=== PATIENT | female | born 1945 | race Caucasian/White ===

== ENCOUNTER 2024-02-10 19:57 | Inpatient (IN) | payer MEDICARE, OTHER ==
[2024-02-10] MEDS ORDERED: niCARdipine 25 MG/10 ML SDV ONE ×2 (20:04→23:07)
[2024-02-10] MEDS ORDERED: fentaNYL 50 mcg/mL 1 mL Vial ONE (20:15)
[2024-02-10 20:20] LABS: #Basophils 0.11 10x3/uL (0.0-0.2); %Basophils 1.3 % (0.0-1.0); %Eosinophils 2.2 % (0.0-10.0); %Lymphocytes 22.3 % (21.0-51.0); %Monocytes 7.1 % (0.0-10.0); %Neutrophils 66.6 % (42.0-75.0); Hematocrit 40.4 % (36.0-47.0); Hemoglobin 13.9 g/dL (12.0-16.0); Mean Corpuscular HGB CONC 34.4 g/dL (32.0-36.0); Mean Corpuscular Hemoglobin 31.4 pg (27.0-31.0); Mean Corpuscular Volume 91.4 fL (78.0-98.0); Mean Platelet Volume 10.4 fL (7.4-10.4); Platelet Count 161 10x3/uL (130-400); RBC Distribution Width 12.8 % (11.5-14.5); Red Blood Cell (RBC) Count 4.42 mill/uL (4.20-5.40)
[2024-02-10] MEDS ORDERED: Fentanyl CADD 100 ML IV SCH (20:30)
[2024-02-10] MEDS ORDERED: Lorazepam 2 MG/ML VIAL ONE (20:33)
[2024-02-10 20:35] LABS: Analyzer IN Cardio ER; Base Excess (BEa) 0.1 mEq/L (-2.0 to +3.0); CO2 Tension 25.3 mmHg (35.0-45.0); Calcium, Ionized (arterial) 1.08 mmol/L (1.12-1.30); Carboxyhemoglobin (COHb) 0.4 gm% (0.0-3.0); Hematocrit-ABG 43 % (36.0-47.0); Hemoglobin (Hb) 14.5 g/dL (12.0-16.0); O2 Tension (PaO2), arterial 74.3 mmHg (> 70.0); Potassium - ABG Lab 4.77 mmol/L (3.70-5.30); pH, Arterial 7.537 (7.35-7.45)
[2024-02-10 20:36] LABS: ALV-art Gradient 179.275 mmHg (0-20); Puncture Site Right Brachial art
[2024-02-10 20:38] LABS: ALT (SGPT) 11 U/L (8-55); AST (SGOT) 23 U/L (5-34); Albumin 3.8 g/dL (3.4-4.8); Alkaline Phosphatase 92 U/L (40-110); Anion Gap 14 mmol/L (10-20); BUN (Urea Nitrogen) 20 mg/dL (9.8-20.1); Bilirubin, Total 0.4 mg/dL (0.2-1.2); Calc. Creatinine Clearance 0 mL/min (70-130); Calcium 8.7 mg/dL (7.8-10.44); Carbon Dioxide 21 mmol/L (23-31); Chloride 108 mmol/L (98-107); Estimated GFR 72; Globulin 2.7 g/dL (2.4-3.5); Glucose 137 mg/dL (83-110); Potassium 3.9 mmol/L (3.5-5.1); Protein, Total 6.5 g/dL (5.8-8.1); Sodium 139 mmol/L (136-145)
[2024-02-10 20:47] LABS: Troponin I 0.043 ng/mL (< 0.028)
[2024-02-10] MEDS ORDERED: levETIRAcetam 500 MG (5 mL) VIAL ONE (21:12)
[2024-02-10] MEDS ORDERED: Mannitol 12.5 GM/50 ML ONE (21:12)
[2024-02-10 21:21] LABS: Prothrombin Time 13.5 sec (12.0-14.7)
[2024-02-10 21:22] LABS: PTT 26.8 sec (22.9-36.1)
[2024-02-10] MEDS ORDERED: Labetalol HCl 100 MG/20 ML VIAL SLOW IVP PRN (21:57)
[2024-02-10] MEDS ORDERED: Electrolyte Replacement Protocol 1 EACH IVPB PRN (21:57)
[2024-02-10] MEDS ORDERED: Mannitol 12.5 GM/50 ML IV PRN (21:57)
[2024-02-10] MEDS ORDERED: niCARdipine 25 MG in Sodium Chloride 0.9% 250 ML 250 ML IVPB PRN (21:57)
[2024-02-10] MEDS ORDERED: Ventilator Sedation Protocol 1 EACH FS SCH (22:00)
[2024-02-10] MEDS ORDERED: Lorazepam 2 MG/ML VIAL SLOW IVP PRN ×2 (22:15→22:56)
[2024-02-10] MEDS ORDERED: Fentanyl BOLUS 250 ML IVPB PRN (22:15)
[2024-02-10] MEDS ORDERED: Propofol 1,000 MG/100 ML VIAL IV PRN (22:15)
[2024-02-10] MEDS ORDERED: DISCONTINUE PREVIOUS NARCOTIC PAIN MEDICATIONS AND BENZODIAZEPINES FS SCH (22:15)
[2024-02-10] MEDS ORDERED: Morphine 2 MG/ML VIAL SLOW IVP PRN (22:15)
[2024-02-10] MEDS ORDERED: Propofol BOLUS 1,000 MG/100 ML VIAL IV PRN (22:15)
[2024-02-10] MEDS ORDERED: Morphine 2 MG/ML VIAL ONE (22:46)
[2024-02-11] MEDS ORDERED: Propofol 1,000 MG/100 ML VIAL IV ONE (00:58)
[2024-02-11] MEDS ORDERED: niCARdipine 25 MG/10 ML SDV ONE (01:36)
[2024-02-11] MEDS ORDERED: Labetalol HCl 100 MG/20 ML VIAL ONE (01:56)
[2024-02-11] MEDS ORDERED: Dextrose 50% Abboject 50 ML SYRINGE SLOW IVP PRN (02:28)
[2024-02-11] MEDS ORDERED: Glucagon 1 MG/ML KIT IM PRN (02:28)
[2024-02-11] MEDS ORDERED: Dextrose 5% in Water 1,000 ML IV PRN (02:28)
[2024-02-11] MEDS ORDERED: hydrALAZINE 20 MG/ML VIAL ONE (02:40)
[2024-02-11] MEDS: Labetalol HCl 100 MG/20 ML VIAL SLOW IVP PRN (03:30)
[2024-02-11] MEDS: niCARdipine 25 MG in Sodium Chloride 0.9% 250 ML 250 ML IVPB PRN (03:35)
[2024-02-11] MEDS: MINERAL OIL/WHITE PETROLATUM 3.5 GM TUBE EA EYE SCH (03:36)
[2024-02-11] MEDS ORDERED: hydrALAZINE 20 MG/ML VIAL SLOW IVP PRN ×2 (04:26→04:58)
[2024-02-11 04:41] VITALS: BMI 21.9
[2024-02-11 04:45] LABS: #Basophils 0.15 10x3/uL (0.0-0.2); %Basophils 0.7 % (0.0-1.0); %Eosinophils 0.3 % (0.0-10.0); %Lymphocytes 6.9 % (21.0-51.0); %Monocytes 9.5 % (0.0-10.0); %Neutrophils 81.9 % (42.0-75.0); Hematocrit 34.1 % (36.0-47.0); Mean Corpuscular HGB CONC 35.2 g/dL (32.0-36.0); Mean Corpuscular Hemoglobin 31.9 pg (27.0-31.0); Mean Corpuscular Volume 90.7 fL (78.0-98.0); Mean Platelet Volume 10.3 fL (7.4-10.4); Platelet Count 200 10x3/uL (130-400); RBC Distribution Width 12.9 % (11.5-14.5); Red Blood Cell (RBC) Count 3.76 mill/uL (4.20-5.40)
[2024-02-11 04:54] LABS: Anion Gap 14 mmol/L (10-20); BUN (Urea Nitrogen) 16 mg/dL (9.8-20.1); Calc. Creatinine Clearance 50 mL/min (70-130); Calcium 8.3 mg/dL (7.8-10.44); Carbon Dioxide 18 mmol/L (23-31); Chloride 110 mmol/L (98-107); Estimated GFR 70; Glucose 157 mg/dL (83-110); Sodium 139 mmol/L (136-145)
[2024-02-11] MEDS: Sodium Chloride 0.9% 1,000 ML IV SCH ×2 (05:10→10:47)
[2024-02-11] MEDS: NOREPINEPHRINE 8 MG/250 ML-D5W 250 ML ONE (05:10)
[2024-02-11] MEDS: hydrALAZINE 20 MG/ML VIAL ONE ×2 (08:06→08:07)
[2024-02-11] MEDS: EPINEPHrine 1 MG/10 ML Abboject SYRINGE ONE (08:08)
[2024-02-11] MEDS: NOREPINEPHRINE 8 MG/250 ML-D5W 0 ML ONE (08:08)
[2024-02-11 08:23] VITALS: BP 139/76
[2024-02-11 10:35] LABS: Actual Bicarbonate (HCO3v) 17.5 mEq/L (22-28); Base Excess -4.7 mEq/L (-2.0 to +3.0); Chloride (VBG) 117 mmol/L (98-106); Hematocrit-VBG 36 % (36.0-47.0); Hemoglobin (Hb) 12.2 g/dL (11.7-16.1); Sodium 147 mmol/L (133-146); pH (venous) 7.463 (7.32-7.43)
[2024-02-11] MEDS: Famotidine/PF 20 mg/2ml Vial SLOW IVP SCH (10:46)
[2024-02-11] MEDS: DC Sedation Protocol FS ONE (10:46)
[2024-02-11] MEDS: Potassium Chloride 20 MEQ in Premix 1 BAG IVPB SCH (10:48)
[2024-02-11] MEDS: NOREPINEPHRINE 8 MG/250 ML-D5W 250 ML IVPB SCH (10:50)
[2024-02-11 13:05] LABS: Actual Bicarbonate (HCO3a) 18.6 mEq/L (22-28); Base Excess (BEa) -2.9 mEq/L (-2.0 to +3.0); Calcium, Ionized (arterial) 1.16 mmol/L (1.12-1.30); Carboxyhemoglobin (COHb) 0.1 gm% (0.0-3.0); Hematocrit-ABG 36 % (36.0-47.0); Hemoglobin (Hb) 12.1 g/dL (12.0-16.0); O2 Tension (PaO2), arterial 177.8 mmHg (> 70.0); Potassium - ABG Lab 4.33 mmol/L (3.70-5.30); pH, Arterial 7.509 (7.35-7.45)
[2024-02-11 13:07] LABS: ALV-art Gradient 41.875 mmHg (0-20); CO2 Tension 23.9 mmHg (35.0-45.0); Puncture Site Right Radial artery
[2024-02-11 13:49] LABS: Base Excess (BEa) -3.3 mEq/L (-2.0 to +3.0); CO2 Tension 46.1 mmHg (35.0-45.0); Calcium, Ionized (arterial) 1.26 mmol/L (1.12-1.30); Carboxyhemoglobin (COHb) 0.3 gm% (0.0-3.0); Hematocrit-ABG 37 % (36.0-47.0); Hemoglobin (Hb) 12.6 g/dL (12.0-16.0); O2 Tension (PaO2), arterial 173.4 mmHg (> 70.0); Potassium - ABG Lab 4.73 mmol/L (3.70-5.30); pH, Arterial 7.315 (7.35-7.45)
[2024-02-11 14:04] LABS: Actual Bicarbonate (HCO3a) 24.9 mEq/L (22-28); Base Excess (BEa) -4.5 mEq/L (-2.0 to +3.0); Calcium, Ionized (arterial) 1.28 mmol/L (1.12-1.30); Carboxyhemoglobin (COHb) 0.3 gm% (0.0-3.0); Hematocrit-ABG 37 % (36.0-47.0); Hemoglobin (Hb) 12.6 g/dL (12.0-16.0); O2 Tension (PaO2), arterial 141.4 mmHg (> 70.0); Potassium - ABG Lab 4.89 mmol/L (3.70-5.30)
[2024-02-11 14:05] LABS: CO2 Tension 68.2 mmHg (35.0-45.0); Puncture Site Left Brachial artery; pH, Arterial 7.181 (7.35-7.45)
[2024-02-11 14:08] LABS: ALV-art Gradient 18.525 mmHg (0-20); Puncture Site Right Radial artery
[2024-02-11 16:18] VITALS: TEMP 98.7
== END 2024-02-11 13:59 | disposition expired | DRG 64 ==
LOC: ERS 19:57 → CCU 21:55
PROVIDERS: ADMIT Student in an Organized Health Care Education/Training Program; ATTEND Internal Medicine
PROC: 0T9B70Z Drainage of Bladder with Drainage Device, Via Natural or Artificial Opening (ICD-10-PCS; principal; 2024-02-10)
PROC: 0D9670Z Drainage of Stomach with Drainage Device, Via Natural or Artificial Opening (ICD-10-PCS; 2024-02-10)
PROC: 0BH17EZ Insertion of Endotracheal Airway into Trachea, Via Natural or Artificial Opening (ICD-10-PCS; 2024-02-10)
PROC: 02HV33Z Insertion of Infusion Device into Superior Vena Cava, Percutaneous Approach (ICD-10-PCS; 2024-02-10)
PROC: B5181ZA Fluoroscopy of Superior Vena Cava using Low Osmolar Contrast, Guidance (ICD-10-PCS; 2024-02-10)
PROC: 6A550Z2 Pheresis of Platelets, Single (ICD-10-PCS; 2024-02-10)
PROC: 4A133R1 Monitoring of Arterial Saturation, Peripheral, Percutaneous Approach (ICD-10-PCS; 2024-02-10)
PROC: 3E033XZ Introduction of Vasopressor into Peripheral Vein, Percutaneous Approach (ICD-10-PCS; 2024-02-11)
PROC: 5A1935Z Respiratory Ventilation, Less than 24 Consecutive Hours (ICD-10-PCS; 2024-02-11)
DX: I61.5 Nontraumatic intracerebral hemorrhage, intraventricular (principal); G93.5 Compression of brain; J96.00 Acute respiratory failure, unspecified whether with hypoxia or hypercapnia; I16.1 Hypertensive emergency; E87.3 Alkalosis; G81.94 Hemiplegia, unspecified affecting left nondominant side; Z66 Do not resuscitate; I25.10 Atherosclerotic heart disease of native coronary artery without angina pectoris; E78.00 Pure hypercholesterolemia, unspecified; R13.10 Dysphagia, unspecified; T68.XXXA Hypothermia, initial encounter; Z95.818 Presence of other cardiac implants and grafts; Z90.49 Acquired absence of other specified parts of digestive tract; R00.1 Bradycardia, unspecified; Z86.73 Personal history of transient ischemic attack (TIA), and cerebral infarction without residual deficits; I25.2 Old myocardial infarction; Z78.1 Physical restraint status; Z79.02 Long term (current) use of antithrombotics/antiplatelets; Z79.82 Long term (current) use of aspirin; X58.XXXA Exposure to other specified factors, initial encounter
CPT/HCPCS: 31500; 36415; 36416; 36430; 36556; 36600; 51702; 70450; 71045; 80048; 80053; 82805; 84484; 85025; 85610; 85730; 86850; 86900; 86901; 93005; 94002; 94003; 94760; 96361; 96365; 96375; 99292; J0360; J1953; J2060; J2150; J2272; J2704; J3010; J3480; J3490; J7030; J7050; P9035

== ENCOUNTER 2024-02-11 13:59 | Day surgery (SDC) | payer OTHER ==
[~2024-02-11 13:59] MED LIST: Iopamidol-370 76% 500 ML MDV (1 ML CHARGE) ONE
[2024-02-11 16:53] LABS: Actual Bicarbonate (HCO3a) 22.4 mEq/L (22-28); Base Excess (BEa) -1.6 mEq/L (-2.0 to +3.0); CO2 Tension 35.3 mmHg (35.0-45.0); Calcium, Ionized (arterial) 1.21 mmol/L (1.12-1.30); Carboxyhemoglobin (COHb) 0.3 gm% (0.0-3.0); Hematocrit-ABG 38 % (36.0-47.0); Hemoglobin (Hb) 12.8 g/dL (12.0-16.0); O2 Tension (PaO2), arterial 207.7 mmHg (> 70.0); Potassium - ABG Lab 4.69 mmol/L (3.70-5.30)
[2024-02-11 16:54] LABS: ALV-art Gradient 33.375 mmHg (0-20); Puncture Site Right Radial artery
[2024-02-11] MEDS: Hydrocortisone Sod Succ/PF 500 mg/4 ml Vial SLOW IVP SCH (17:56)
[2024-02-11] MEDS: Piperacillin/Tazobactam 3.375 GM in Sodium Chloride 0.9% 100 ML IVPB SCH (18:13)
[2024-02-11] MEDS: Ipratropium/Albuterol 3 ML NEB NEB SCH (18:18)
[2024-02-11 18:54] LABS: #Basophils 0.08 10x3/uL (0.0-0.2); %Basophils 0.5 % (0.0-1.0); %Eosinophils 0.2 % (0.0-10.0); %Monocytes 7.1 % (0.0-10.0); %Neutrophils 87.6 % (42.0-75.0); Hematocrit 36.2 % (36.0-47.0); Hemoglobin 12.6 g/dL (12.0-16.0); Mean Corpuscular HGB CONC 34.8 g/dL (32.0-36.0); Mean Corpuscular Hemoglobin 31.9 pg (27.0-31.0); Mean Corpuscular Volume 91.6 fL (78.0-98.0); Mean Platelet Volume 10.3 fL (7.4-10.4); Platelet Count 226 10x3/uL (130-400); RBC Distribution Width 13.4 % (11.5-14.5); Red Blood Cell (RBC) Count 3.95 mill/uL (4.20-5.40)
[2024-02-11 19:04] LABS: Bilirubin Negative (Negative); Blood, Urine 1+ (Negative); Clarity Clear (Clear); Glucose, Urine (Dipstick) Normal (Negative); Ketone, Urine Negative (Negative); Leukocyte Negative Leu/uL (Negative); Nitrite Negative (Negative); Protein, Urine (Dipstick) Negative (Neg-Trace); RBC/HPF 0-3 HPF (0-3); Squamous Epithelial None Seen HPF (0-3); Urobilinogen Normal mg/dL (Less than 2)
[2024-02-11 19:05] LABS: Lactic Acid 1.44 mmol/L (0.5-2.2)
[2024-02-11 19:16] LABS: ALT (SGPT) 16 U/L (8-55); AST (SGOT) 25 U/L (5-34); Albumin 3.4 g/dL (3.4-4.8); Alkaline Phosphatase 83 U/L (40-110); Anion Gap 15 mmol/L (10-20); BUN (Urea Nitrogen) 14 mg/dL (9.8-20.1); Bilirubin, Total 1.2 mg/dL (0.2-1.2); Calc. Creatinine Clearance 45 mL/min (70-130); Calcium 8.8 mg/dL (7.8-10.44); Carbon Dioxide 20 mmol/L (23-31); Chloride 129 mmol/L (98-107); Estimated GFR 61; Globulin 2.8 g/dL (2.4-3.5); Glucose 166 mg/dL (83-110); INR-International Normal Ratio 1.2; Magnesium 2.1 mg/dL (1.6-2.6); Phosphorus 2.7 mg/dL (2.3-4.7); Potassium 4.6 mmol/L (3.5-5.1); Protein, Total 6.2 g/dL (5.8-8.1); Prothrombin Time 15.4 sec (12.0-14.7); Sodium 159 mmol/L (136-145)
[2024-02-11 19:17] LABS: PTT 30.6 sec (22.9-36.1)
[2024-02-11 19:22] LABS: Specific Gravity, Urine 1.004 (1.002-1.036); WBC/HPF 0-3 HPF (0-3)
[2024-02-11 19:23] LABS: Bacteria/HPF Rare-Few HPF (None Seen)
[2024-02-11] MEDS: Vasopressin In 0.9 % NaCl 40 UNIT in Premix 1 BAG IV SCH (20:52)
[2024-02-11] MEDS ORDERED: Vasopressin In 0.9 % NaCl 40 UNIT in Premix 1 BAG IV SCH (22:30)
[2024-02-11] MEDS: Metolazone 5 MG TAB PO SCH (23:04)
[2024-02-11] MEDS: Furosemide 40 MG (4 mL) VIAL SLOW IVP SCH (23:40)
[2024-02-12] MEDS: Hydrocortisone Sod Succ/PF 100 mg/2 ml Vial IVP SCH (00:10)
[2024-02-12 04:24] LABS: #Basophils 0.06 10x3/uL (0.0-0.2); #Eosinophils Less than 0.03 10x3/uL (0.0-0.7); %Basophils 0.3 % (0.0-1.0); %Lymphocytes 2.7 % (21.0-51.0); %Monocytes 3.7 % (0.0-10.0); %Neutrophils 92.8 % (42.0-75.0); Hemoglobin 11.7 g/dL (12.0-16.0); Mean Corpuscular HGB CONC 33.4 g/dL (32.0-36.0); Mean Corpuscular Hemoglobin 31.5 pg (27.0-31.0); Mean Corpuscular Volume 94.3 fL (78.0-98.0); Mean Platelet Volume 10.2 fL (7.4-10.4); Platelet Count 187 10x3/uL (130-400); RBC Distribution Width 13.9 % (11.5-14.5); Red Blood Cell (RBC) Count 3.71 mill/uL (4.20-5.40)
[2024-02-12] MEDS: NOREPINEPHRINE 8 MG/250 ML-D5W 250 ML IVPB SCH (04:26)
[2024-02-12 04:35] LABS: INR-International Normal Ratio 1.4; Prothrombin Time 16.9 sec (12.0-14.7)
[2024-02-12 04:51] LABS: Bacteria/HPF None Seen HPF (None Seen); Bilirubin Negative (Negative); Blood, Urine 1+ (Negative); Clarity Clear (Clear); Glucose, Urine (Dipstick) Normal (Negative); Ketone, Urine Negative (Negative); Leukocyte 75 Leu/uL (Negative); Nitrite Negative (Negative); Protein, Urine (Dipstick) 10 mg/dL (Neg-Trace); Squamous Epithelial None Seen HPF (0-3); Urobilinogen Normal mg/dL (Less than 2)
[2024-02-12] MEDS: Furosemide 20 MG (2 mL) VIAL SLOW IVP SCH (04:58)
[2024-02-12 04:59] LABS: Specific Gravity, Urine 1.058 (1.002-1.036)
[2024-02-12 05:02] LABS: Lactic Acid 1.86 mmol/L (0.5-2.2)
[2024-02-12 05:36] LABS: Albumin 3.1 g/dL (3.4-4.8); BUN (Urea Nitrogen) 16 mg/dL (9.8-20.1); Bilirubin, Total 0.8 mg/dL (0.2-1.2); Calc. Creatinine Clearance 34 mL/min (70-130); Calcium 8.7 mg/dL (7.6-10.4); Carbon Dioxide 21 mmol/L (23-31); Chloride 130 mmol/L (98-107); Estimated GFR 50; Glucose 249 mg/dL (83-110); Potassium 3.9 mmol/L (3.5-5.1); Sodium 161 mmol/L (136-145)
[2024-02-12 05:37] LABS: ALT (SGPT) 18 U/L (8-55); AST (SGOT) 21 U/L (5-34); Alkaline Phosphatase 75 U/L (40-110); Globulin 2.9 g/dL (2.4-3.5); Phosphorus 3.8 mg/dL (2.3-4.7)
[2024-02-12 05:38] LABS: Anion Gap 14 mmol/L (10-20)
[2024-02-12] MEDS: Insulin Regular, Human 100 UNIT/ML 10 ML VIAL IVP SCH ×2 (05:58→07:34)
[2024-02-12 06:07] LABS: Magnesium 2.2 mg/dL (1.6-2.6)
[2024-02-12 08:24] LABS: Actual Bicarbonate (HCO3a) 20.7 mEq/L (22-28); Base Excess (BEa) -4.6 mEq/L (-2.0 to +3.0); Calcium, Ionized (arterial) 1.21 mmol/L (1.12-1.30); Carboxyhemoglobin (COHb) 0.3 gm% (0.0-3.0); Hematocrit-ABG 37 % (36.0-47.0); Hemoglobin (Hb) 12.7 g/dL (12.0-16.0); O2 Tension (PaO2), arterial 197.2 mmHg (> 70.0); Potassium - ABG Lab 2.96 mmol/L (3.70-5.30); pH, Arterial 7.343 (7.35-7.45)
[2024-02-12 10:15] LABS: Puncture Site Arterial Line
[2024-02-12 16:19] LABS: Bacteria/HPF None Seen HPF (None Seen); Bilirubin Negative (Negative); Blood, Urine Trace (Negative); Clarity Clear (Clear); Glucose, Urine (Dipstick) Normal (Negative); Ketone, Urine Negative (Negative); Leukocyte 25 Leu/uL (Negative); Nitrite Negative (Negative); Protein, Urine (Dipstick) Negative (Neg-Trace); RBC/HPF 0-3 HPF (0-3); Specific Gravity, Urine 1.024 (1.002-1.036); Squamous Epithelial 0-3 HPF (0-3); Urobilinogen Normal mg/dL (Less than 2)
[2024-02-12 19:05] LABS: Lactic Acid 1.23 mmol/L (0.5-2.2)
[2024-02-12 19:11] LABS: INR-International Normal Ratio 1.4; PTT 30.9 sec (22.9-36.1); Prothrombin Time 17.1 sec (12.0-14.7)
[2024-02-12 19:24] LABS: ALT (SGPT) 16 U/L (8-55); AST (SGOT) 17 U/L (5-34); Albumin 2.6 g/dL (3.4-4.8); Alkaline Phosphatase 67 U/L (40-110); Anion Gap 13 mmol/L (10-20); BUN (Urea Nitrogen) 16 mg/dL (9.8-20.1); Bilirubin, Total 0.9 mg/dL (0.2-1.2); Calc. Creatinine Clearance 36 mL/min (70-130); Calcium 7.8 mg/dL (7.8-10.44); Carbon Dioxide 24 mmol/L (23-31); Chloride 110 mmol/L (98-107); Estimated GFR 53; Globulin 2.7 g/dL (2.4-3.5); Glucose 188 mg/dL (83-110); Magnesium 1.7 mg/dL (1.6-2.6); Phosphorus 4.2 mg/dL (2.3-4.7); Potassium 3.2 mmol/L (3.5-5.1); Protein, Total 5.3 g/dL (5.8-8.1); Sodium 144 mmol/L (136-145)
[2024-02-12 20:26] LABS: #Basophils 0.05 10x3/uL (0.0-0.2); #Eosinophils Less than 0.03 10x3/uL (0.0-0.7); %Basophils 0.2 % (0.0-1.0); %Lymphocytes 4.6 % (21.0-51.0); %Monocytes 6.7 % (0.0-10.0); %Neutrophils 87.5 % (42.0-75.0); Hematocrit 30.3 % (36.0-47.0); Hemoglobin 10.3 g/dL (12.0-16.0); Mean Corpuscular Hemoglobin 31.9 pg (27.0-31.0); Mean Corpuscular Volume 93.8 fL (78.0-98.0); Mean Platelet Volume 10.8 fL (7.4-10.4); Platelet Count 140 10x3/uL (130-400); Red Blood Cell (RBC) Count 3.23 mill/uL (4.20-5.40)
[2024-02-12 21:44] LABS: Actual Bicarbonate (HCO3a) 24.5 mEq/L (22-28); Base Excess (BEa) 0.5 mEq/L (-2.0 to +3.0); CO2 Tension 37.2 mmHg (35.0-45.0); Calcium, Ionized (arterial) 1.05 mmol/L (1.12-1.30); Carboxyhemoglobin (COHb) 0.3 gm% (0.0-3.0); Hematocrit-ABG 31 % (36.0-47.0); Hemoglobin (Hb) 10.5 g/dL (12.0-16.0); O2 Tension (PaO2), arterial 223.2 mmHg (> 70.0); Potassium - ABG Lab 3.04 mmol/L (3.70-5.30); pH, Arterial 7.437 (7.35-7.45)
[2024-02-12 21:45] LABS: Puncture Site Arterial Line
[2024-02-13] MEDS: Potassium Chloride 40 MEQ in Premix 1 BAG IVPB SCH (00:37)
[2024-02-13 04:00] VITALS: BMI 22.8
[2024-02-13 04:12] VITALS: TEMP 97.6
[2024-02-13 07:14] LABS: Bacteria/HPF None Seen HPF (None Seen); Bilirubin Negative (Negative); Blood, Urine 1+ (Negative); Clarity Clear (Clear); Glucose, Urine (Dipstick) Greater than 1000 mg/dL (Negative); Ketone, Urine Negative (Negative); Leukocyte Negative Leu/uL (Negative); Nitrite Negative (Negative); Protein, Urine (Dipstick) Negative (Neg-Trace); RBC/HPF 0-3 HPF (0-3); Specific Gravity, Urine 1.023 (1.002-1.036); Squamous Epithelial 0-3 HPF (0-3); Urobilinogen Normal mg/dL (Less than 2)
[2024-02-13 08:31] LABS: Hemoglobin 9.6 g/dL (12.0-16.0); Mean Corpuscular HGB CONC 34.3 g/dL (32.0-36.0); Mean Corpuscular Hemoglobin 31.9 pg (27.0-31.0); Mean Platelet Volume 9.9 fL (7.4-10.4); Platelet Count 125 10x3/uL (130-400); RBC Distribution Width 13.4 % (11.5-14.5); Red Blood Cell (RBC) Count 3.01 mill/uL (4.20-5.40)
[2024-02-13 08:38] LABS: Lactic Acid 1.84 mmol/L (0.5-2.2)
[2024-02-13 08:49] LABS: INR-International Normal Ratio 1.4; Prothrombin Time 16.8 sec (12.0-14.7)
[2024-02-13 08:50] LABS: PTT 35.2 sec (22.9-36.1)
[2024-02-13 09:02] LABS: ALT (SGPT) 14 U/L (8-55); AST (SGOT) 14 U/L (5-34); Albumin 2.4 g/dL (3.4-4.8); Alkaline Phosphatase 73 U/L (40-110); Anion Gap 12 mmol/L (10-20); BUN (Urea Nitrogen) 17 mg/dL (9.8-20.1); Calc. Creatinine Clearance 43 mL/min (70-130); Calcium 7.8 mg/dL (7.8-10.44); Carbon Dioxide 24 mmol/L (23-31); Chloride 104 mmol/L (98-107); Estimated GFR 58; Globulin 2.8 g/dL (2.4-3.5); Glucose 264 mg/dL (83-110); Magnesium 1.7 mg/dL (1.6-2.6); Phosphorus 2.7 mg/dL (2.3-4.7); Potassium 3.5 mmol/L (3.5-5.1); Protein, Total 5.2 g/dL (5.8-8.1); Sodium 136 mmol/L (136-145)
[2024-02-13 09:58] LABS: Band 18 % (5-11); Lymphocytes 5 % (21-51); Neutrophil 77 % (42-75); Platelet Adequacy Comment Platelets Decreased; Polychromasia SLIGHT = 2-3 cells HPF (0-2)
[2024-02-13 11:35] VITALS: BP 116/47
== END 2024-02-13 11:41 | disposition expired ==
LOC: SDC 13:59 → CCU 13:59 → SDC 02-13 11:41
PROVIDERS: ATTEND Nurse Practitioner Family
PROC: 04HL33Z Insertion of Infusion Device into Left Femoral Artery, Percutaneous Approach (ICD-10-PCS; principal; 2024-02-11)
DX: Z45.2 Encounter for adjustment and management of vascular access device (principal); J96.90 Respiratory failure, unspecified, unspecified whether with hypoxia or hypercapnia; J90 Pleural effusion, not elsewhere classified; J98.11 Atelectasis
CPT/HCPCS: 36415; 36416; 36600; 71045; 74178; 80053; 81001; 82248; 82805; 83605; 83690; 83735; 84100; 85025; 85610; 85730; 94003; 94640; J1720; J1815; J1940; J2543; J3480; J7620; Q9967